=== PATIENT | male | born 1990 | race Caucasian/White ===

== ENCOUNTER 2016-12-30 01:30 | Emergency (ER) | payer OTHER ==
[~2016-12-30] VITALS: Ht 182.9 cm; Wt 113.4 kg
[~2016-12-30 01:30] MED LIST: TOBREX5 ML OPHTHALMIC
[2016-12-30] MEDS ORDERED: NEURONTIN 300300 M1 PO (01:48)
[2016-12-30] MEDS ORDERED: VISTARIL 25 MG25 M1 (01:49)
[2016-12-30] MEDS ORDERED: BUSPIRONE HCL10 MG PO (01:49)
[2016-12-30] MEDS ORDERED: TRAZODONE HCL50 MG (01:50)
[2016-12-30] MEDS ORDERED: LITHIUM CARBON150 MG (01:54)
[2016-12-30] MEDS ORDERED: LAMICTAL100 MG PO (01:54)
[2016-12-30] MEDS ORDERED: SEROQUEL 50 MG50 MG PO (01:55)
[2016-12-30] MEDS ORDERED: ESKALITH300 MG (01:55)
[2016-12-30 02:41] LABS: BASOPHILS 0.8 % (0.0-2.0); EOSINOPHILS 5.3 % (0.0-3.0); HEMATOCRIT 40.1 % (42.0-52.0); HEMOGLOBIN 13.7 gm/dL (14.0-18.0); MCH 27.4 pg (26.0-34.0); MCHC 34.3 g/dL (28.0-37.0); MONOCYTES 6.7 % (1.0-8.0); PLATELET COUNT 181 thou/uL (150-400); POLYS 53.2 % (36.0-66.0); RBC 5.02 mil/uL (4.50-6.00); RDW 15.4 % (10.5-14.5); WBC 7.4 thou/uL (4.0-11.0)
[2016-12-30 02:45] LABS: CALCIUM 8.8 mg/dL (8.5-10.1); CREATININE 1.2 mg/dL (0.7-1.3); POTASSIUM 3.9 mmol/L (3.5-5.1)
[2016-12-30 02:49] LABS: MANUAL DIFF NO
[2016-12-30 02:49] LABS: AMP/METHAMP Negative (Negative); BARBITURATES Negative (Negative); BENZODIAZEPINES Negative (Negative); COCAINE Negative (Negative); METHADONE Negative (Negative); OPIATES POSITIVE (Negative); PCP Negative (Negative); THC POSITIVE (Negative)
[2016-12-30 06:10] VITALS: BP 128/74
== END 2016-12-30 06:11 | disposition home or self-care (01) ==
LOC: ER 01:30
PROVIDERS: Emergency Medicine
DX: R45.851 Suicidal ideations (principal); F10.99 Alcohol use, unspecified with unspecified alcohol-induced disorder